=== PATIENT | male | born 2000 | race Two or more races ===

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

== ENCOUNTER → 2020-01-17 | Emergency (ER) | payer SELFPAY ==
[~2020-01-17] VITALS: Ht 170.2 cm; Wt 68.0 kg
[~2020-01-17] MED LIST changes: +GUAIFENESIN-CO118 M1 ORAL; +Tetanus/Diptheria/Pertussis IM ONE
[2020-01-17 23:10] VITALS: BP 127/80
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
== END | disposition home or self-care (01) ==
LOC: EMR 23:49
DX: S61.411A Laceration without foreign body of right hand, initial encounter (principal); Z23 Encounter for immunization; W25.XXXA Contact with sharp glass, initial encounter; Y92.9 Unspecified place or not applicable
CPT/HCPCS: 90471; 90715; 99282

== ENCOUNTER 2020-01-30 15:53 | Emergency (ER) | payer MEDICAID ==
[~2020-01-30] VITALS: Ht 170.2 cm; Wt 68.5 kg
[~2020-01-30 15:53] MED LIST changes: -Tetanus/Diptheria/Pertussis IM ONE
[2020-01-30 16:16] VITALS: BP 138/89
--- NOTE | 2020-01-30 16:54 | Emergency Room Report ---
History of Present Illness General Chief Complaint: Laceration Source: Patient Present Illness HPI 19-year-old male presents for laceration follow-up. He sustained a laceration to his right hand approximately 1 week ago. Patient had site Dermabond to adhere. Over the past week the wound healing has developed a small flap of skin which has been bothering patient. He request removal of the flap of skin. No drainage from in the room. No other complaints at this time. 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 RELATIONS SPECIALIST: Yes COVID-19 Screening: Negative COVID-19 COVID-19 Testing Source: 01/24/20 Patient History Reviewed Nursing Documentation: PMH: Agreed; PSxH: Agreed Nursing Documentation-PMH Past Medical History: No History, Except For Review of Systems All Other Systems: negative except mentioned in HPI Physical Exam Vital Signs Date Time Temp Pulse Resp B/P (MAP) Pulse Ox O2 Delivery O2 Flow Rate FiO2 01/30/20 16:00 98.4 120 15 138/89 (105) 96 Room Air Sp02 EP Interpretation: reviewed, normal General Appearance: well appearing, no apparent distress Head: normocephalic, atraumatic Eyes: bilateral eye PERRL, bilateral eye EOMI ENT: hearing grossly normal, moist mucus membranes Neck: full range of motion, supple Respiratory: lungs clear, normal breath sounds, no rhonchi, no respiratory distress, no retraction, no wheezing Cardiovascular #1: normal peripheral pulses, regular rate, rhythm, no murmur Gastrointestinal: non tender, soft, non-distended, no guarding Neurologic: alert, oriented x3, no focal defects Skin: normal color, warm/dry, other - Wound noted to right palm, small 1 cm avulsion flap noted, no active bleeding Procedures Laceration/Wound Repair Laceration/Wound Repair : Consent: Verbal Wound Location: upper extremity Wound's Depth, Shape: superficial Wound Explored: clean Anesthesia: 1% Lidocaine Wound Debrided: moderate - Flap avulsion of the laceration was removed by me Wound Repaired With: Dermabond Sterile Dressing Applied?: Yes Patient Tolerated: Well Complications: None Progress Wound was covered with Dermabond to control bleeding and dressing applied. Medical Decision Making Diagnostic Impression: Primary Impression: Encounter for wound care ER Course Patient presented for a wound check. He had a small flap of avulsed skin that he wished to have removed. I did remove the avulsion. I applied a small amount of Dermabond to the area to control bleeding. Dressing was applied. Patient tolerated procedure well. No signs of infection. Patient otherwise stable for discharge. Given return precautions. Last Vital Signs Date Time Temp Pulse Resp B/P (MAP) Pulse Ox O2 Delivery O2 Flow Rate FiO2 01/30/20 16:16 98.4 89 15 138/89 96 Room Air Disposition: HOME, SELF-CARE Referrals: [facility] Patient Instructions: Laceration Care, Adult Additional Instructions: Patient is instructed to follow-up with her primary care doctor, primary care clinic or [facility] in 1 to 2 days. Patient instructed to return for any worsening symptoms or concerns. Disclaimer: Please note that this report is being documented using [employer] technology. This can lead to erroneous entry secondary to incorrect interpretation by the dictating instrument. Toney Georges M.D. Jan 30, 2020 16:54
[2020-01-30 16:56] VITALS: BP 138/89
== END 2020-01-30 16:57 | disposition home or self-care (01) ==
LOC: EMR 16:35
DX: S61.411A Laceration without foreign body of right hand, initial encounter (principal); X58.XXXA Exposure to other specified factors, initial encounter; Y92.9 Unspecified place or not applicable
CPT/HCPCS: 12041; Z7502; 99282